=== PATIENT | male | born 1945 | race Caucasian/White ===

== ENCOUNTER 2016-10-03 08:27 | Day surgery (SDC) | payer MEDICARE, OTHER ==
[~2016-10-03 08:27] MED LIST: Ak-Dilate OPHTHALMIC*** 0.71 ML, Cyclogyl 1% OPHTH SOL 5 ML 0.71 ML, GATIFLOXACIN 0.5% ... OP ONE; DIPRIVAN 200 MG/20 ML IV ONE; Lactated Ringers 1,000 ML IV SCH; TETRACAINE 0.5% STERI-UNIT SOL OP ONE; Versed 2 MG/2 ML Injection IV ONE
[2016-10-03] MEDS ORDERED: Zofran 4 MG/2 ML VIAL IV PRN (09:00)
[2016-10-03 09:03] VITALS: O2SAT 98
[2016-10-03] MEDS ORDERED: Lactated Ringers 1,000 ML IV ONE ×2 (09:04→11:48)
[2016-10-03 12:55] VITALS: BP 148/78; PULSE 57
--- NOTE | 2016-10-03 12:58 | OP ---
DATE/TIME OF OPERATION: 10/03/2016 1118 TIME DICTATED: 1231 PREOPERATIVE DIAGNOSIS: Senile cataract of right eye. POSTOPERATIVE DIAGNOSIS: Senile cataract of right eye. SURGEON: Chriss Lima MD ROUGH PATCHER: None. OPERATION: Cataract extraction of right eye with an intraocular lens implant. STANDARD __X___ COMPLEX ANESTHESIA: MAC. ___X___ Monitored anesthesia care in combination with topical and intra-cameral anesthesia (because of the established specific risk of reflux, arrhythmias, or an anxiety attack associated with ocular manipulation as well as difficulty of the signal helper to manage such potentially catastrophic events while simultaneously attempting to complete the surgical procedure, it was deemed necessary for the patient's safety to have an anesthesiologist or a nurse cylinder tester present during the procedure whenever possible. The anesthesiologist or the nurse cylinder tester was utilized to monitor and regulate the intravenous sedation of the patient, so the patient was cooperative, relaxed, and comfortable). Topical anesthesia using Tetracaine eye drops together with intra cameral anesthesia using Lidocaine 1% MPF. The nurse was utilized to monitor the patient. ANESTHESIA PROVIDER: Wes Torres CRNA. COMPLICATIONS: None. BLOOD LOSS: None. INDICATIONS: The patient is undergoing cataract surgery in the hopes of eliminating the visual complaints and difficulty. PROCEDURE: After arriving at the facility's outpatient surgery area, an IV was started; the patient was given 5 mg of p.o. Versed. (If an anesthesia provider was not monitoring the patient) The patient was then given topical anesthetic Tetracaine eye drops. A cotton pellet was soaked into a solution of a combination of Zymaxid 0.5%, Ramesh-Synephrine 2.5% and Ocufen (other drops might have been substituted referenced in the patient's record). The pellet was inserted by the RN into the lower conjunctival cul-de-sac with a sterile forceps and left for 20 minutes. The pellet was then removed by the RN with a sterile forceps before taking the patient to the operating room. The preoperative area nurse identified the patient and marked the correct eye to be operated on. I identified the correct eye to be operated on and marked it appropriately in the outpatient surgery area. The patient was then taken into the operating room. Tetracaine eye drops were installed again in the correct eye. The eyelids and the lashes and the lid margins were scrubbed with Betadine solution. One drop of the diluted Betadine solution was placed in the conjunctival cul-de-sac for 45 seconds and then was irrigated. A drop of Tetracaine Gel was placed in the conjunctival cul-de-sac. The patient's forehead was taped to secure it during the procedure. The patient was monitored. The patient was then draped in the usual way for this procedure. An eye speculum was used to separate the eyelids. The eye was then fixated and a temporal 2.5 mm incision was made in the clear cornea temporally at the limbus. Through the incision, 0.25 cc of 1% non-preserved lidocaine was injected into the anterior chamber for intracameral anesthesia. The anterior chamber was then filled with viscoelastic. The pupil was small. I felt that it would be safer to mechanically dilate the pupil. A Malyugin ring was used at this point which dilated the pupil. That was removed at the end of the procedure prior to aspiration of the viscoelastic from the anterior chamber and posterior to the intraocular lens implant. The cataract had a great amount of cortical changes. That rendered seeing the anterior capsule difficult for a safe performance of an anterior capsulotomy. I injected an air bubble into the anterior chamber. I then injected 1 ML of vision blue solution into the anterior chamber. The vision blue solution was irrigated from the anterior chamber after 30 seconds. The anterior capsule was stained which facilitated performing the anterior capsulotomy safely. After that was completed, a cystotome was introduced into the anterior chamber and a round anterior capsulotomy was performed. The capsule was removed by a forceps. Hydrodissection was next carried utilizing a 25-gauge cannula and balanced salt solution to delineate the cortical material from the capsule and the nucleus from the cortical material. The nucleus was rotated freely into the capsular bag with no difficulty. The phaco tip of the [employer] Phacoemulsifier was introduced into the anterior chamber and two grooves were made into the nucleus 90 degrees apart. Using two spatulas resulted into the nucleus being fractured into four quadrants. The phaco tip was then used to remove each quadrant of the nucleus. Viscoelastic was used during this process to protect the corneal endothelium. Once the entire nucleus was removed, the phaco tip then was removed and the irrigation tip was introduced into the eye and the cortex was removed. The posterior capsule was polished. It was noticed that there was a tear into the posterior capsule with few vitreous strands into the pupil plan. An anterior vitrectomy was performed. A 20.00 diopter, [id number], posterior chamber lens implant, was inspected and found to be grossly normal. The implant was inserted into the implant injector cartridge; Viscoelastic again was introduced into the anterior chamber, which filled the capsular bag. The implant injector's cartridge tip was placed at the limbal wound and the posterior chamber implant was released into the capsular bag and rotated appropriately. The implant was found to be into the capsular bag and it was centered. 0.2 ml of Tri-Moxi was introduced via 27 gauge cannula into the vitreous cavity through the ciliary processes. Viscoelastic was aspirated from the anterior chamber and posterior to the intraocular lens implant from the capsular bag using the irrigating tip. The anterior chamber was irrigated and filled with 5 cc antibiotic solution (500 cc of BSS plus 2 ml of Fortaz 100 mg/ml) ( if patient was not allergic to the medication). The lips of the corneal incision were hydrated using BSS solution. The anterior chamber was checked and found to be water tight. ___X___ One drop each of antibiotic, steroid and NSAID drops (refer to chart for drops used) were placed in the conjunctival cul-de-sac of the operated eye. Patient tolerated the procedure quite well and left the operating room in satisfactory condition. DISCHARGE SUMMARY: The patient was released in stable condition. The patient and those with the patient were given an instruction sheet as of how to care for the eye after surgery as well as counseling on any abnormal laboratory studies by the postoperative RN. The patient was also given an appointment card for follow-up in the office and is to call immediately for any difficulties including but not limited to pain in the eye, decreased vision, discharge from the eye, headache and or fever. DISCHARGE DIAGNOSIS: Pseudophakia of right eye.
[2016-10-03] MEDS ORDERED: BETADINE 5% OPHTHALMIC 30 ML OP ONE (13:30)
[2016-10-03] MEDS ORDERED: LIDOCAINE HCL 1% AMPUL 5 ML IJ ONE (13:30)
[2016-10-03] MEDS ORDERED: BSS 500 ML, Fortaz/Tazicef 1 GM** 0.2 G IO ONE ×2 (13:30)
[2016-10-03] MEDS ORDERED: Epinephrine Preservative Free 1 MG/ML INTRAOP ONE (13:30)
== END 2016-10-03 13:07 | disposition home or self-care (01) ==
LOC: SDC 08:27
PROVIDERS: ATTEND Ophthalmology
PROC: 08RJ3JZ Replacement of Right Lens with Synthetic Substitute, Percutaneous Approach (ICD-10-PCS; principal; 2016-10-03)
PROC: 08B43ZZ Excision of Right Vitreous, Percutaneous Approach (ICD-10-PCS; 2016-10-03)
DX: H25.9 Unspecified age-related cataract (principal)
CPT/HCPCS: 66984; 67005; C1780; 00142; 99100; J0171; J2250; J2704; A9270-GY

== ENCOUNTER 2018-05-23 08:20 | Day surgery (SDC) | payer MEDICARE ==
--- NOTE | 2018-05-22 11:11 | HP ---
DATE OF SURGERY: 05/23/2018 ADMISSION DIAGNOSIS: Symptomatic cholelithiasis. ANTICIPATED PROCEDURE: Cholecystectomy. HISTORY OF PRESENT ILLNESS: The patient has upper abdominal pain. Ultrasound positive. Seen and examined. Procedure discussed in detail. PAST MEDICAL HISTORY: ALLERGIES: SULFA, MILK PRODUCTS. MEDICATIONS: Nexium, Lupron, aspirin. PAST SURGICAL HISTORY: Colon resection. Cataracts. SOCIAL HISTORY: Negative. FAMILY HISTORY: Negative. REVIEW OF SYSTEMS: Negative. PHYSICAL EXAMINATION: VITAL SIGNS: Normal. CHEST: Clear. COR: Regular. ABDOMEN: Multiple incisions. IMPRESSION: Symptomatic cholelithiasis. PLAN: Laparoscopic cholecystectomy.
[~2018-05-23 08:20] MED LIST changes: -Ak-Dilate OPHTHALMIC*** 0.71 ML, Cyclogyl 1% OPHTH SOL 5 ML 0.71 ML, GATIFLOXACIN 0.5% ... OP ONE; -DIPRIVAN 200 MG/20 ML IV ONE; +Lactated Ringers 1,000 ML IV ONE; -Lactated Ringers 1,000 ML IV SCH; +Sensorcaine 0.25% 10 ML ONE; -TETRACAINE 0.5% STERI-UNIT SOL OP ONE; -Versed 2 MG/2 ML Injection IV ONE
[2018-05-23] MEDS ORDERED: BRIDION 200MG/2ML IV ONE (08:21)
[2018-05-23] MEDS ORDERED: BREVIBLOC 100 MG/10 ML IV ONE (08:21)
[2018-05-23] MEDS ORDERED: Versed 2 MG/2 ML Injection IV ONE (08:21)
[2018-05-23] MEDS ORDERED: SUBLIMAZE 100 MCG/2 ML IV ONE (08:21)
[2018-05-23] MEDS ORDERED: DIPRIVAN 200 MG/20 ML IV ONE (08:21)
[2018-05-23] MEDS ORDERED: Zemuron 100 MG/10 ML IJ ONE (08:21)
[2018-05-23] MEDS ORDERED: Lactated Ringers 1,000 ML IV SCH (08:30)
[2018-05-23] MEDS ORDERED: Lactated Ringers 1,000 ML IV ONE (08:33)
[2018-05-23] MEDS ORDERED: MEFOXIN 2 GM PREMIX** 2 GM/50 ML ML IV SCH (09:00)
[2018-05-23] MEDS ORDERED: MORPHINE SULFATE 10 MG/ML ONE (11:37)
[2018-05-23] MEDS ORDERED: Zofran 4 MG/2 ML VIAL ONE (11:37)
--- NOTE | 2018-05-23 11:44 | OP ---
SURGERY DATE/TIME: 05/23/2018 1048 PREOPERATIVE DIAGNOSIS: Cholecystitis, cholelithiasis. POSTOPERATIVE DIAGNOSIS: Cholecystitis, cholelithiasis. PROCEDURE: Laparoscopic cholecystectomy. SURGEON: Dr. Mary. ANESTHESIA: General endotracheal tube. COMPLICATIONS: None. CONDITION: Stable. INDICATIONS: A patient with upper abdominal pain. Ultrasound positive. Seen and examined. Procedure discussed in detail and wished to proceed. DESCRIPTION OF PROCEDURE AND FINDINGS: General anesthetic, routine prep and drape. Time out performed. Veress needle inserted 30 degree angle infraumbilical. Opening pressure -1. Four-port 5 is placed. Good visualization. There was some adhesion against the omentum taken down. Cystic duct defined. Cystic artery defined. Both structures triply clipped and transected. Clips noted across and well approximated. Gallbladder rolled out of gallbladder fossa. The gallbladder delivered intact. Field is clean and dry. CO2 ex-sufflated. Port site closed at the umbilicus withdrawal site closed with 0 Vicryl. Skin closed with 4-0 Vicryl and Steri-Strips. CO2 ex-sufflated. The patient tolerated the procedure satisfactorily.
[2018-05-23 12:45] VITALS: O2SAT 98
[2018-05-23 13:04] VITALS: PULSE 72
[2018-05-23 13:24] VITALS: BP 153/78
== END 2018-05-23 13:10 | disposition home or self-care (01) ==
LOC: SDC 08:20
PROVIDERS: ATTEND Surgery
DX: K80.10 Calculus of gallbladder with chronic cholecystitis without obstruction (principal)
CPT/HCPCS: 88304; 94250; 99100; J0694; J2250; J2270; J2405; J2704; J3010

== ENCOUNTER 2019-07-01 09:08 | Emergency (ER) | payer MEDICARE ==
--- NOTE | 2019-07-01 09:20 | ERPHSYRPT ---
- History of Present Illness Time Seen by Provider: 07/01/19 09:20 Source: patient, family Exam Limitations: no limitations Physician History: 74 y/o white male presents with one week coughing. pt has sore throat and rib pain from coughing so much.he states he has mild soa with coughing. denies n/v/ d. denies abd pain. Timing/Duration: day(s) (7) Cough Quality/Degree: moderate, productive cough (yellow) Possible Cause: occasional episodes Modifying Factors: Improves With: coughing Associated Symptoms: cough, shortness of breath (when coughing), sore throat, No fever Allergies/Adverse Reactions: Sulfa (Sulfonamide Antibiotics) Allergy (Verified 07/01/19 09:21) Rash lactose Adverse Reaction (Verified 07/01/19 09:21) Diarrhea Home Medications: Esomeprazole Magnesium [Nexium] 20 mg PO DAILY 05/14/18 [History] Tamsulosin HCl 1 bag DAILY 07/01/19 [History] - Review of Systems Constitutional: No Symptoms Eyes: No Symptoms Ears, Nose, & Throat: Throat Pain Respiratory: Cough Cardiac: No Symptoms Abdominal/Gastrointestinal: No Symptoms Genitourinary Symptoms: No Symptoms Musculoskeletal: No Symptoms Skin: No Symptoms Neurological: No Symptoms Psychological: No Symptoms Endocrine: No Symptoms Hematologic/Lymphatic: No Symptoms Immunological/Allergic: No Symptoms All Other Systems: Reviewed and Negative - Past Medical History Pertinent Past Medical History: Yes Neurological History: No Pertinent History ENT History: Cataracts, Macular Degeneration Cardiac History: No Pertinent History Respiratory History: No Pertinent History Endocrine Medical History: No Pertinent History Musculoskeletal History: No Pertinent History GI Medical History: GERD History: No Pertinent History Psycho-Social History: No Pertinent History Male Reproductive Disorders: Prostate Cancer, Other Other Medical History: pt PSA elevated,prostate cancer and 45 radiation treatments, hx of polyps. - Past Surgical History Past Surgical History: Yes Neuro Surgical History: No Pertinent History Cardiac: No Pertinent History Respiratory: No Pertinent History Gastrointestinal: Colon Resection Genitourinary: No Pertinent History Musculoskeletal: No Pertinent History Male Surgical History: No Pertinent History - Social History Smoking Status: Former smoker Exposure to second hand smoke: No Drug Use: none - Nursing Vital Signs Nursing Vital Signs: Initial Vital Signs Temperature 98.2 F 07/01/19 09:12 Pulse Rate 95 H 07/01/19 09:12 Respiratory Rate 18 07/01/19 09:12 Blood Pressure 156/92 07/01/19 09:12 O2 Sat by Pulse Oximetry 95 07/01/19 09:12 Pain Scale Pain Intensity 3 - Physical Exam General Appearance: no apparent distress, alert, anxiety Eye Exam: PERRL/EOMI Ears, Nose, Throat Exam: normal ENT inspection, moist mucous membranes Neck Exam: normal inspection, non-tender, supple, full range of motion Respiratory Exam: normal breath sounds, lungs clear, airway intact, No chest tenderness, No respiratory distress Cardiovascular Exam: regular rate/rhythm, normal heart sounds, normal peripheral pulses Gastrointestinal/Abdomen Exam: soft, normal bowel sounds, No tenderness Rectal Exam: not done Back Exam: normal inspection, normal range of motion, No CVA tenderness, No vertebral tenderness Extremity Exam: normal inspection, normal range of motion, pelvis stable Neurologic Exam: alert, oriented x 3, cooperative, perforator operator oil well II-XII nml as tested Skin Exam: normal color, warm, dry Lymphatic Exam: No adenopathy SpO2 Interpretation: borderline oxygenation O2 Delivery: Room Air - Course Nursing assessment & vital signs reviewed: Yes EKG Interpreted by Me: RATE (94), Sinus Rhythm, NORMAL AXIS, NORMAL INTERVALS, NORMAL QRS, Other (no comparison ekg) Ordered Tests: Active Orders 24 hr Category Date Time Status CHEST 1 VIEW (PORTABLE) Stat Exams 07/01/19 09:38 Ordered Medication Summary Generic Name Dose Route Start Last Admin Trade Name Freq PRN Reason Stop Dose Admin Ceftriaxone Sodium/Dextrose 1 g in 50 mls @ 100 mls/hr 07/01/19 09:36 Rocephin 1 Gm-D5w 50 Ml Bag IV 07/01/19 10:05 STAT STA Discontinued Medications Generic Name Dose Route Start Last Admin Trade Name Freq PRN Reason Stop Dose Admin Hydrocodone Bitart/Acetaminophen 10 ml 07/01/19 09:37 Hydrocodone-Acetamin 2.5-108/5 Ml Solution PO 07/01/19 09:38 STAT STA Methylprednisolone Sodium Succinate 125 mg 07/01/19 09:36 Solu-Medrol 125 Mg IV 07/01/19 09:37 STAT ONE - Progress Progress: improved Air Movement: good Progress Note: 07/01/19 09:55 RT evaluated pt. no neb tx necessary. 07/01/19 09:57 cxr-no infiltrate Blood Culture(s) Obtained: No Antibiotics given: Yes Counseled pt/family regarding: diagnosis, need for follow-up, rad results - Departure Departure Disposition: Home Clinical Impression: Upper respiratory infection Condition: Stable Critical Care Time: No Referrals: CHNEG HOLLIS MD [Primary Care Provider] - Additional Instructions: drink plenty of fluids. follow up with dr. hollis for further management. Prescriptions: Albuterol 8 gm Mdi Hfa [Ventolin Hfa MDI] 8 gm IH Q4H #1 hfa.aer.ad Azithromycin 250 mg [Zithromax 250 MG TABLET] 250 mg PO ZPACK #6 tablet Hydrocodone Bit/Acetaminophen [Hydrocodone-Acetaminophen Soln] 10 ml PO Q6H # 120 ml Prednisone 10 mg [Deltasone 10 mg] 10 mg PO TID #12 tablet
[2019-07-01] MEDS ORDERED: ROCEPHIN 1 Gm-D5w 50 ml Bag** 1 G/50 ML IVPB IV STA (09:36)
[2019-07-01] MEDS ORDERED: solu-MEDROL 125 MG IV ONE (09:36)
[2019-07-01] MEDS ORDERED: HYDROCODONE-ACETAMIN 2.5-108/5 ML SOLUTION PO STA (09:37)
[2019-07-01] MEDS ORDERED: HYDROCODONE-ACETAMIN 2.5-108/5 ML SOLUTION ONE (09:51)
[2019-07-01] MEDS ORDERED: solu-MEDROL 125 MG ONE (09:51)
[2019-07-01] MEDS ORDERED: ROCEPHIN 1 Gm-D5w 50 ml Bag** 1 G/50 ML IVPB IV ONE (09:51)
[2019-07-01 10:05] VITALS: BP 159/73; PULSE 76; O2SAT 98
--- NOTE | 2019-07-01 10:05 | XRAY ---
Indication: Cough 7 days. Comparison: None Portable chest demonstrates minimal left base subsegmental atelectasis/scarring and a few scattered incidental calcified granulomas. No focal infiltrate, consolidation, or large effusion. Heart is not enlarged. Bony thorax intact with mild degenerative changes. Impression: Nonacute chest with chronic features.
[2019-07-01] MEDS ORDERED: PROVENTIL COMMON CANISTER IH ONE (10:45)
== END 2019-07-01 10:28 | disposition home or self-care (01) ==
LOC: ED 09:08
DX: J06.9 Acute upper respiratory infection, unspecified (principal)
CPT/HCPCS: 71045; 94640; 94760; 96365; 96374; 99284; J0696; J2930; A9270-GY

== ENCOUNTER 2021-12-30 12:57 | Emergency (ER) | payer MEDICARE ==
[2021-12-30 13:06] VITALS: O2SAT 97
--- NOTE | 2021-12-30 13:17 | ERPHSYRPT ---
- History of Present Illness Time Seen by Provider: 12/30/21 13:05 Source: patient Exam Limitations: no limitations Patient Subjective Stated Complaint: pt has laceration to above left knee from hedge trimmers Triage Nursing Assessment: pt alert, resp easy, skin w/d/p, face mask in place, has laceration above left knee with small amt of bleeding Physician History: This is a 76-year-old white male patient who was using hedge cutters at home prior to arrival and he suffered an accidental laceration to the left, anterior, distal thigh approximately 2 hours prior to arrival. He came to the emergency room after he finished the work at home. He was concerned because of the laceration site kept oozing superficially. Patient is on Plavix. Patient's tetanus status is not up-to-date. Timing/Duration: today Quality: painful Severity: mild Location: extremities (Left, anterior, distal thigh) Possible Causes: other (Accidental laceration with hedge trimmers) Associated Symptoms: denies symptoms Allergies/Adverse Reactions: Sulfa (Sulfonamide Antibiotics) Allergy (Verified 12/30/21 13:01) Rash lactose Adverse Reaction (Verified 12/30/21 13:01) Diarrhea Home Medications: Esomeprazole Magnesium [Nexium] 20 mg PO DAILY 05/14/18 [History] Tamsulosin HCl 1 bag DAILY 07/01/19 [History] Atorvastatin Calcium 1 ea DAILY 12/30/21 [History] Carvedilol 12.5 mg [Coreg 12.5 mg] 12.5 mg PO BID 12/30/21 [History] Clopidogrel Bisulfate [Clopidogrel] 1 ea DAILY 12/30/21 [History] Furosemide [Lasix] 20 mg PO DAILY 12/30/21 [History] Sertraline HCl 50 mg [Zoloft 50 mg Tablet] 50 mg PO DAILY 12/30/21 [History] Hx Tetanus, Diphtheria Vaccination/Date Given: No Hx Influenza Vaccination/Date Given: No Hx Pneumococcal Vaccination/Date Given: No Immunizations Up to Date: Yes Travel Risk - International Travel Have you traveled outside of the country in past 3 weeks: No - Coronavirus Screening Are you exhibiting any of the following symptoms?: No Close contact with a COVID-19 positive Pt in past 14-21 Days: No - Vaccine Status Have you recieved a Covid-19 vaccination: Yes People Greeter: Moderna - Vaccination Dates Date of 2cond Vaccination (if applicable): 2020 - Review of Systems Constitutional: No Symptoms Eyes: No Symptoms Ears, Nose, & Throat: No Symptoms Respiratory: No Symptoms Cardiac: No Symptoms Abdominal/Gastrointestinal: No Symptoms Genitourinary Symptoms: No Symptoms Musculoskeletal: No Symptoms Skin: No Symptoms Neurological: No Symptoms Psychological: No Symptoms Endocrine: No Symptoms Hematologic/Lymphatic: No Symptoms Immunological/Allergic: No Symptoms All Other Systems: Reviewed and Negative - Past Medical History Pertinent Past Medical History: Yes Neurological History: No Pertinent History ENT History: Cataracts, Macular Degeneration Cardiac History: No Pertinent History Respiratory History: No Pertinent History Endocrine Medical History: No Pertinent History Musculoskeletal History: No Pertinent History GI Medical History: GERD History: No Pertinent History Psycho-Social History: No Pertinent History Male Reproductive Disorders: Prostate Cancer, Other Other Medical History: pt PSA elevated,prostate cancer and 45 radiation treatments, hx of polyps. - Past Surgical History Past Surgical History: Yes Neuro Surgical History: No Pertinent History Cardiac: No Pertinent History Respiratory: No Pertinent History Gastrointestinal: Colon Resection Genitourinary: No Pertinent History Musculoskeletal: No Pertinent History Male Surgical History: No Pertinent History - Social History Smoking Status: Never smoker Exposure to second hand smoke: No Drug Use: none Patient Lives Alone: No - Nursing Vital Signs Nursing Vital Signs: Initial Vital Signs Temperature 97 F 12/30/21 13:05 Pulse Rate 71 12/30/21 13:05 Respiratory Rate 18 12/30/21 13:05 Blood Pressure 167/75 12/30/21 13:05 O2 Sat by Pulse Oximetry 97 12/30/21 13:05 Pain Scale Pain Intensity 2 - Physical Exam General Appearance: no apparent distress, alert Eye Exam: PERRL/EOMI, eyes nml inspection Ears, Nose, Throat Exam: normal ENT inspection, moist mucous membranes Neck Exam: normal inspection, non-tender, supple, full range of motion Respiratory Exam: airway intact, No chest tenderness, No respiratory distress Gastrointestinal/Abdomen Exam: No tenderness Rectal Exam: not done Back Exam: normal inspection, normal range of motion, No CVA tenderness, No vertebral tenderness Extremity Exam: normal range of motion, pelvis stable, lacerations, tenderness (Mild at the site of the laceration) Neurologic Exam: alert, oriented x 3, cooperative, merchandise presentation associate II-XII nml as tested, normal mood/affect, nml cerebellar function, nml station & gait, sensation nml Skin Exam: laceration (1 centimeter laceration left, anterior distal thigh superficial oozing. No foreign body present.) Lymphatic Exam: No adenopathy SpO2 Interpretation: normal SpO2: 97 O2 Delivery: Room Air Procedures - Laceration/Wound Repair Left Lower Anterior Distal Thigh Time of Procedure: 13:10 Wound Location: Left, upper leg (Left, anterior, distal thigh) Wound Length (cm): 1 Wound's Depth, Shape: superficial, linear Wound Explored: clean (No foreign body. Examination was performed to the base in a bloodless field.) Irrigated: Yes Hibiclens Prep: Yes Wound Repaired With: [place] (2 topher placed) Layer Closure?: No - Course Nursing assessment & vital signs reviewed: Yes - Progress Progress: improved Counseled pt/family regarding: diagnosis, need for follow-up - Departure Departure Disposition: Home Clinical Impression: Laceration of left thigh Condition: Stable Critical Care Time: No Referrals: CHENG HOLLIS MD [Primary Care Provider] - Follow up/PCP as directed Additional Instructions: Stop your Plavix and do not restart until the morning of 01/01/2022. Ice pack to the bandage 2-3 times a day. On the morning of 01/01/2022 may remove the bandage and wash the site daily. After washing may place a thin layer of antibiotic ointment to the site daily. Recover with a bandage. Staple removal in 7 to 10 days.
[2021-12-30] MEDS ORDERED: Adacel Vial IM ONE ×2 (13:19→13:26)
[2021-12-30] MEDS ORDERED: BACIGUENT PACKET TP ONE (13:20)
[2021-12-30] MEDS ORDERED: BACIGUENT PACKET ONE (13:26)
[2021-12-30 13:37] VITALS: BP 120/64; PULSE 78
== END 2021-12-30 13:38 | disposition home or self-care (01) ==
LOC: ED 12:57
DX: S71.112A Laceration without foreign body, left thigh, initial encounter (principal); W27.8XXA Contact with other nonpowered hand tool, initial encounter; Y93.H2 Activity, gardening and landscaping; Z79.02 Long term (current) use of antithrombotics/antiplatelets; Z79.899 Other long term (current) drug therapy
CPT/HCPCS: 12001; 90471; 90715; 99283; A9270-GY

== ENCOUNTER 2023-04-03 08:23 | Day surgery (SDC) | payer MEDICARE ==
[~2023-04-03 08:23] MED LIST changes: +Ak-Dilate OPHTHALMIC*** 1.065 ML, Cyclogyl 1% OPHTH SOL 1.065 ML, GATIFLOXACIN 0.5% OPH... OP ONE; +BETADINE 5% OPHTHALMIC 30 ML OP ONE; -Lactated Ringers 1,000 ML IV ONE; +Lactated Ringers 1,000 ML IV SCH; +NON-FORMULARY ITEM OP ONE; -Sensorcaine 0.25% 10 ML ONE; +TETRACAINE 0.5% STERI-UNIT SOL OP ONE; +cefUROXime sodium 0.005 GM in Sodium Chloride Flush 30 ML*** 0.5 ML IJ ONE
[2023-04-03] MEDS ORDERED: Epinephrine Preservative Free 1 MG/ML IJ ONE (08:24)
[2023-04-03] MEDS ORDERED: Lactated Ringers 1,000 ML IV ONE (09:10)
[2023-04-03] MEDS ORDERED: Zofran 4 MG/2 ML VIAL IV PRN (10:30)
[2023-04-03] MEDS ORDERED: DIPRIVAN 200 MG/20 ML IV ONE (10:59)
[2023-04-03] MEDS ORDERED: SUBLIMAZE 100 MCG/2 ML ONE (11:07)
[2023-04-03] MEDS ORDERED: Versed 2 MG/2 ML Injection ONE (11:09)
[2023-04-03 11:26] VITALS: TEMP 97.7
[2023-04-03 11:40] VITALS: BP 128/68; PULSE 65; RESP 20; O2SAT 98
== END 2023-04-03 11:40 | disposition home or self-care (01) ==
LOC: SDC 08:23
PROVIDERS: ATTEND Ophthalmology
DX: H25.812 Combined forms of age-related cataract, left eye (principal)
CPT/HCPCS: 66982; C1780; J0171; J2250; J2704; J3010; A9270-GY